=== PATIENT | male | born 1970 | race Caucasian/White ===

== ENCOUNTER 2016-09-24 15:38 | Emergency (ER) | payer OTHER ==
[2016-09-24 15:43] VITALS: BP 140/83; PULSE 77; TEMP 98; BMI 33.0
--- NOTE | 2016-09-24 16:18 | PDOC ---
History of Present Illness - General Chief Complaint: Injury Stated Complaint: [employer]/ HEAD INJURY Time Seen by Provider: 09/24/16 16:17 History Source: Patient Exam Limitations: No Limitations - History of Present Illness Initial Comments: 09/24/16 16:18 [employer], while on duty was walking up staircase and collided with a low hanging step striking the crown of his head on the staircase. No LOC, but does have a small contusion and abrasion to the crown of his head. No drainage from nose or ears, denies neck pain or other injury. Her mental status change, and behavior is unchanged according to his partner 09/24/16 16:22 09/24/16 16:43 Occurred: reports: just prior to arrival Severity: reports: mild Pain Location: reports: none Method of Injury: Yes: direct blow Modifying Factors: improves with: None Loss of Consciousness: no loss of consciousness Associated Symptoms (Fall): denies symptoms Past History - Travel Traveled outside of the country in the last 30 days: No Close contact w/someone who was outside of country & ill: No - Past Medical History Allergies/Adverse Reactions: Allergies Allergy/AdvReac Type Severity Reaction Status Date / Time No Known Allergies Allergy Verified 09/24/16 15:40 Home Medications: Ambulatory Orders NK [No Known Home Medication] 09/24/16 Other medical history: denies - Immunization History Td Vaccination: No Immunization Up to Date: Yes - Psycho/Social/Smoking Cessation Hx Anxiety: No Suicidal Ideation: No Smoking Status: Yes Smoking History: Current every day smoker Years of Tobacco Use: 20 Have you smoked in the past 12 months: Yes Number of Cigarettes Smoked Daily: 15 Information on smoking cessation initiated: No Hx Alcohol Use: No Drug/Substance Use Hx: No Substance Use Type: Alcohol Review of Systems - Review of Systems Able to Perform ROS?: Yes Is the patient limited Lithuanian proficient: Yes Constitutional: Yes: Symptoms Reported, See HPI, Malaise HEENTM: Yes: See HPI. No: Symptoms Reported Musculoskeletal: Yes: Symptoms Reported Integumentary: Yes: Symptoms Reported All Other Systems: Reviewed and Negative *Physical Exam - Vital Signs Last Vital Signs Temp Pulse Resp BP Pulse Ox 98.0 F 77 18 140/83 96 09/24/16 15:41 09/24/16 15:41 09/24/16 15:41 09/24/16 15:41 09/24/16 15:41 - Physical Exam General Appearance: Yes: Nourished, Appropriately Dressed, Apparent Distress HEENT: positive: EOMI, SAMMIE, Normal ENT Inspection, TMs Normal (no hemotympanum , ), Pharynx Normal, Other (no crepitus or step-off to crown of head although has a small nonfluctuant contusion with a superficial abrasion approximately 2 cm to crown. No evidence of skull fracture. No drainage from nose or ears, no phillips signs) Neck: positive: Supple (with no tenderness along the cervical spine, has full range of motion in neck and no muscular pain.). negative: Tender (C-spine tenderness), Lymphadenopathy (R), Lymphadenopathy (L) Respiratory/Chest: positive: Lungs Clear, Normal Breath Sounds Cardiovascular: positive: Regular Rate Gastrointestinal/Abdominal: positive: Soft Musculoskeletal: positive: Normal Inspection. negative: Decreased Range of Motion Extremity: positive: Normal Capillary Refill Integumentary: positive: Normal Color, Other (superficial abrasion ) Neurologic: positive: c software developer II-XII NML intact, Fully Oriented, Alert, Normal Mood/ Affect, Normal Response, Motor Strength 5/5 Progress Note - Progress Note Progress Note: Superfiocial head injury with abrasion, tetanus booster updated today, no other significant injury. We'll treat conservatively. Patient refuses Motrin and return to work *DC/Admit/Observation/Transfer Diagnosis at time of Disposition: Contusion Qualifiers: Encounter type: initial encounter Contusion area: head Contusion of head detail : scalp Qualified Code(s): S00.03XA - Contusion of scalp, initial encounter - Discharge Dispostion Disposition: HOME Condition at time of disposition: Stable Admit: No - Patient Instructions Printed Discharge Instructions: DI for Contusion Additional Instructions: Rest, avoid strenuous activity or exercise for the next 24-48 hours May use ice on contusions as needed. May use Tylenol or Motrin for pain relief Watch and seek evaluation for changes in behavior including crankiness, inconsolability, quietness/ sleepiness that is inappropriate, tiredness that is inappropriate, watch for worsening and changes of behavior. Seek immediate evaluation/return to emergency department for vomiting, mental status changes, pain that's out of proportion , bloody drainage from ears or nose. Followup with private physician as needed in one to 2 days for reevaluation - Post Discharge Activity Work/School Note: Back to Work
[2016-09-24] MEDS ORDERED: DIPHTH,PERTUSS(ACELL),TET 0.5 ML DISP.SYRIN IM ONE (16:21)
[2016-09-24] MEDS ORDERED: BACITRACIN 30 GM TUBE TOPICAL OINTMENT ONE (16:24)
== END 2016-09-24 17:00 | disposition home or self-care (01) ==
LOC: JERFT 15:38
PROC: 3E0234Z Introduction of Serum, Toxoid and Vaccine into Muscle, Percutaneous Approach (ICD-10-PCS; principal; 2016-09-24)
DX: S00.03XA Contusion of scalp, initial encounter (principal); S00.01XA Abrasion of scalp, initial encounter; W22.8XXA Striking against or struck by other objects, initial encounter; Y93.89 Activity, other specified; Y92.89 Other specified places as the place of occurrence of the external cause; Y99.0 Civilian activity done for income or pay
CPT/HCPCS: 90715; 99281-25

== ENCOUNTER 2017-03-22 15:25 | Emergency (ER) | payer OTHER ==
[2017-03-22 15:29] VITALS: BP 130/84; PULSE 97; TEMP 98.3; BMI 34.1
--- NOTE | 2017-03-22 16:08 | PDOC ---
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 Patient denies hitting his head, no neurosensory deficits, no bowel or bladder difficulty. PMH: [None] MEDS:[None] ALLERGIES: [None] PCP: [NOne] REVIEW OF SYSTEMS: GENERAL/CONSTITUTIONAL: Awake alert and oriented HEAD, EYES, EARS, NOSE AND THROAT: No change in vision. No facial edema, no bruising. NO active bleeding. Nares intact. RESPIRATORY: No cough, wheezing, or hemoptysis. CARDIAC: Denies chest pain, no shortness of breathe. MUSCULOSKELETAL: No spinal point tenderness, Good ROM to all four extremities. Reproducible pain to the left lateral ribs on inspiration and movement. NO CVA tenderness. [No] lateral neck pain. Pain to anterior right knee. GI/: Denies abdominal pain, no nausea or vomiting, no bloody stool, no Hematuria. SKIN : No erythema or bruising noted. No abrasion or lacerations. NEUROLOGIC: No loss of consciousness, no numbness or tingling. PHYSICAL EXAM: GENERAL: Awake and alert and oriented x3. EYES: The pupils are equal, round, and reactive to light, with clear, conjunctiva. Good extraocular movement. No nystagmus NOSE: No nasal trauma . Midface stable MOUTH: Teeth intact. EARS: The ear canals and tympanic membranes are normal without trauma. No drainage. NECK: No Lower cervical C-spine tenderness, no pain with chin to chest. CHEST: The lungs are clear without crackles, or wheezes. No subcutaneous emphysema. No crepitus. HEART: Heart is regular rhythm, with normal S1 and S2, no murmurs. ABDOMEN: The abdomen is soft and nontender with normal bowel sounds. There is no guarding or rebound. MUSCULOSKELETAL: No spinal point tenderness. No bruising or erythema. Pelvis stable. Pain on palpation to the right lateral ribs. EXTREMITIES: Extremities are normal. No visible traumatic injury. Right knee with no erythema, edema. No bulging. NEUROLOGICAL:Mental status: The patient is oriented x3. No Generalized headache , Romberg [-] Cranial nerves: Cranial nerves II through XII are intact Motor: The upper extremities are 5 over 5 in all muscle groups. The lower extremities are 5 over 5 in all muscle groups. Sensation: Sensation is intact to light touch throughout. Cerebellar: [id number] is normal in both upper extremities. Heel-knee- torres is normal in both lower extremities. Reflexes: 2+ and symmetric in the upper and lower extremities. Gait: Normal. Heel and toe walking are normal. Tandem gait is normal. SKIN: Without edema, erythema or bruising. No abrasions or lacerations. Past History - Past Medical History Allergies/Adverse Reactions: Allergies Allergy/AdvReac Type Severity Reaction Status Date / Time No Known Allergies Allergy Verified 03/22/17 15:26 Home Medications: Ambulatory Orders NK [No Known Home Medication] 09/24/16 COPD: No - Immunization History Td Vaccination: No Immunization Up to Date: Yes - Suicide/Smoking/Psychosocial Hx Smoking Status: Yes Smoking History: Current every day smoker Years of Tobacco Use: 20 Have you smoked in the past 12 months: Yes Number of Cigarettes Smoked Daily: 20 Information on smoking cessation initiated: Yes 'Breaking Loose' booklet given: 03/22/17 Hx Alcohol Use: No Drug/Substance Use Hx: No Substance Use Type: Alcohol *Physical Exam - Vital Signs Last Vital Signs Temp Pulse Resp BP Pulse Ox 98.3 F 97 H 18 130/84 100 03/22/17 15:27 03/22/17 15:27 03/22/17 15:27 03/22/17 15:27 03/22/17 15:27 ED Treatment Course - RADIOLOGY Radiology Studies Ordered: Category Date Time Status KNEE 3 POS-RIGHT [RAD] Stat Radiology 03/22/17 15:50 Ordered RIBS-LEFT SIDE [RAD] Stat Radiology 03/22/17 15:50 Ordered Medical Decision Making - Medical Decision Making 03/22/17 16:08 A/P : Patient here for evaluation status post fall left rib pain and right knee pain. Patient's 800 mg of Motrin prior to arrival. Since x-ray of right knee and left ribs. 03/22/17 18:33 X-rays are negative for acute injury, will DC patient home on anti- inflammatories follow up with orthopedics in one week if pain persists. *DC/Admit/Observation/Transfer Diagnosis at time of Disposition: Rib injury Fall due to ice or snow Qualifiers: Encounter type: initial encounter Qualified Code(s): W00.9XXA - Unspecified fall due to ice and snow, initial encounter Knee injury Qualifiers: Encounter type: initial encounter Laterality: right Qualified Code(s): S89.91XA - Unspecified injury of right lower leg, initial encounter - Discharge Dispostion Disposition: HOME Condition at time of disposition: Good Admit: No - Referrals Referrals: Kunal Dawkins MD [Staff Physician] - - Patient Instructions Additional Instructions: If any increased pain, numbness tingling or other concerns return to the ER - Post Discharge Activity Forms/Work/School Notes: Back to Work
== END 2017-03-22 16:42 | disposition home or self-care (01) ==
LOC: JERFT 15:25
DX: S89.91XA Unspecified injury of right lower leg, initial encounter (principal); Y93.89 Activity, other specified; W00.0XXA Fall on same level due to ice and snow, initial encounter; Y35.91XA Legal intervention, means unspecified, law enforcement official injured, initial encounter; Y92.9 Unspecified place or not applicable
CPT/HCPCS: 71101-TC; 73562-TC-RT; 99281-25

== ENCOUNTER 2017-11-29 17:35 | Emergency (ER) | payer BC, OTHER ==
[2017-11-29 17:38] VITALS: BP 117/86; PULSE 68; TEMP 98.2; BMI 31.9
--- NOTE | 2017-11-29 17:38 | PDOC ---
Rapid Medical Evaluation Time Seen by Provider: 11/29/17 17:36 Medical Evaluation: Allergies Allergy/AdvReac Type Severity Reaction Status Date / Time No Known Allergies Allergy Verified 11/29/17 17:36 I have performed a brief in-person evaluation of this patient. The patient presents with a chief complaint of: laceration to left hand sustained with magana's knife at work. last tetanus was 2 years ago. patient cleaned the wound prior to coming to the ER with hydrogen peroxide Pertinent physical exam findings: 2cm linear laceration to dorsum of left hand at base of 2nd digit. No active bleeding and margins very well approximated I have ordered the following: nothing The patient will proceed to the ED for further evaluation. Discharge Disposition - Diagnosis Laceration of hand Qualifiers: Encounter type: initial encounter Foreign body presence: without foreign body Laterality: left Qualified Code(s): S61.412A - Laceration without foreign body of left hand, initial encounter - Referrals - Patient Instructions - Post Discharge Activity
[2017-11-29] MEDS ORDERED: DIPHTH,PERTUSS(ACELL),TET 0.5 ML DISP.SYRIN IM ONE (17:57)
--- NOTE | 2017-11-29 18:10 | PDOC ---
History of Present Illness - General Chief Complaint: Laceration Stated Complaint: LACERATION Time Seen by Provider: 11/29/17 17:36 History Source: Patient Exam Limitations: No Limitations - History of Present Illness Initial Comments: Patient is a 47-year-old male who states that he cut himself approximately 30 mins prior to arrival with a cutting knife. He states he has a laceration between the first and second digits. His tetanus status is unknown. He denies pain. He denies bleeding. Denies any aggravating or relieving factors. 11/29/17 18:06 Past History - Travel Traveled outside of the country in the last 30 days: No Close contact w/someone who was outside of country & ill: No - Past Medical History Allergies/Adverse Reactions: Allergies Allergy/AdvReac Type Severity Reaction Status Date / Time No Known Allergies Allergy Verified 11/29/17 17:36 Home Medications: Ambulatory Orders NK [No Known Home Medication] 09/24/16 COPD: No - Immunization History Td Vaccination: No Immunization Up to Date: Yes - Suicide/Smoking/Psychosocial Hx Smoking Status: Yes Smoking History: Current every day smoker Years of Tobacco Use: 20 Have you smoked in the past 12 months: Yes Number of Cigarettes Smoked Daily: 20 Information on smoking cessation initiated: Yes 'Breaking Loose' booklet given: 11/29/17 Hx Alcohol Use: No Drug/Substance Use Hx: No Substance Use Type: Alcohol Review of Systems - Review of Systems Able to Perform ROS?: Yes All Other Systems: Reviewed and Negative *Physical Exam - Vital Signs Last Vital Signs Temp Pulse Resp BP Pulse Ox 98.2 F 68 18 117/86 100 11/29/17 17:36 11/29/17 17:36 11/29/17 17:36 11/29/17 17:36 11/29/17 17:36 - Physical Exam Comments: Constitutional: VS stated, pt appears in no apparent distress; sitting in chair. Skin: Warm and dry. Patient has a 2.5 cm laceration between the first and second digits on the left hand. Bleeding is controlled. No signs of secondary infection. Head: Normocephalic; atraumatic Eyes: conjunctiva pink without injection or discharge. Throat: Oropharynx with pink and moist mucosa. Lungs: Bilateral breath sounds clear upon auscultation. Heart: Regular rate and rhythm, Musculoskeletal: Focused on the left hand. Patient can make a fist without difficulty. Can make an okay sign without difficulty. Can resist pressure with each digit without difficulty. Radial pulse present, cap refill less than 2 seconds, sensation intact. Neurologic: Awake, alert. Conversation fluent. 11/29/17 18:07 ED Treatment Course - Medications Given in the ED: ED Medications Discontinued Medications Generic Name Dose Route Start Last Admin Trade Name Eduard PRN Reason Stop Dose Admin Diphtheria/Tetanus/Acell Pertussis 0.5 ml 11/29/17 17:57 11/29/17 17:57 Boostrix - IM 11/29/17 17:58 0.5 ml NOW ONE Administration Medical Decision Making - Medical Decision Making Patient gave verbal permission for me to irrigate and suture his laceration. Tetanus status was unknown; patient was given Boostrix. The wound was irrigated with 200 mL of normal saline. Afterwards the wound was cleansed with Betadine and anesthetized with 1 mL of lidocaine with good anesthetic effect. Sterile technique was performed. Two 6.0 Prolene sutures were placed with good approximation. Afterwards bacitracin was applied with appropriate dressing. 11/29/17 18:08 *DC/Admit/Observation/Transfer Diagnosis at time of Disposition: Laceration of hand Qualifiers: Encounter type: initial encounter Foreign body presence: without foreign body Laterality: left Qualified Code(s): S61.412A - Laceration without foreign body of left hand, initial encounter - Discharge Dispostion Disposition: HOME Condition at time of disposition: Stable Decision to Admit order: No - Referrals - Patient Instructions Printed Discharge Instructions: DI for Laceration Repair Additional Instructions: Keep dressing on for the next 24 hours. Afterwards remove the dressing and apply Polysporin twice daily for the next 3 days then discontinue. Observe for signs and symptoms of infection, if this occurs follow-up with your PCP or return. Return in 7-10 days for suture removal. - Post Discharge Activity
== END 2017-11-29 18:38 | disposition home or self-care (01) ==
LOC: JERFT 17:35
PROC: 3E0234Z Introduction of Serum, Toxoid and Vaccine into Muscle, Percutaneous Approach (ICD-10-PCS; principal; 2017-11-29)
PROC: 0HQGXZZ Repair Left Hand Skin, External Approach (ICD-10-PCS; 2017-11-29)
DX: S61.412A Laceration without foreign body of left hand, initial encounter (principal); W26.0XXA Contact with knife, initial encounter; Y93.H3 Activity, building and construction; Y92.69 Other specified industrial and construction area as the place of occurrence of the external cause; Y99.0 Civilian activity done for income or pay
CPT/HCPCS: 90715; 99281-25